=== PATIENT | female | born 1985 | race Caucasian/White ===

== ENCOUNTER 2020-02-28 17:04 | Emergency (ER) | payer OTHER, MEDICAID ==
[~2020-02-28] VITALS: Ht 152.4 cm; Wt 68.9 kg
[2020-02-28 17:24] VITALS: BP_SYST 148
[2020-02-28] MEDS ORDERED: ACETAMINOPHEN 500 MG TABLET PO ONE (19:15)
[2020-02-28 19:25] VITALS: BP_SYST 148
== END 2020-02-28 19:25 | disposition home or self-care (01) ==
LOC: SED 17:04
DX: R41.3 Other amnesia (principal); Z88.2 Allergy status to sulfonamides; V49.9XXA Car occupant (driver) (passenger) injured in unspecified traffic accident, initial encounter; Y93.89 Activity, other specified; Y92.413 State road as the place of occurrence of the external cause; Y99.8 Other external cause status
CPT/HCPCS: 70450-TC; 72125-TC; 81025; 99285